=== PATIENT | female | born 1995 | race African-American/Black ===

== ENCOUNTER 2019-11-29 12:30 | Outpatient (CLI) | payer BC, SELFPAY | END 2019-11-29 12:31 | disposition home or self-care (01) | PROVIDERS: PCP Nurse Practitioner Family; Visit Provider Obstetrics & Gynecology | DX: O00.90 Unspecified ectopic pregnancy without intrauterine pregnancy (principal); Z3A.00 Weeks of gestation of pregnancy not specified | CPT/HCPCS: 36415; 84702; 86900; 86901 ==

== ENCOUNTER 2019-11-30 09:08 | Outpatient (CLI) | payer BC, SELFPAY ==
--- NOTE | ~2019-11-30 | US_ITS ---
EXAMINATION: US OB <=14 wk fetus w TV EXAM DATE: 11/30/2019 10:06 INDICATION: Ectopic . 1st trimester. TECHNIQUE: Pelvic obstetrical transabdominal and transvaginal sonogram was performed by a technian steiner. There are multiple grayscale and Doppler images available for interpretation. There are no gabriel ier studies of this gestation for comparison. FINDINGS: Uterus is retroverted, measures 8.8 x 5.8 x 5.0 cm. There is intrauterine gestation sac. pole with heart rate confirmed at 93 beats per minute. The 3 mm crown-rump length corresponds to estimated gestational age by ultrasound of 6 weeks 0 days, BONIFACIO by ultrasound 07/25/2020. Yolk sac is identified. There is hypoechoic subchorionic region which could be a small subchorionic hemorrha ge measuring 1.0 x 0.9 x 1.6 cm. The ovaries are morphologically normal, no extrauterine i dentified. IMPRESSION: 1. Early live intrauterine gestation, probable small subchorionic hemorrhage. 2. No extrauterine identified. Reviewed, dictated and finalized at location [facility].
== END 2019-11-30 09:09 | disposition home or self-care (01) ==
PROVIDERS: PCP Nurse Practitioner Family; Visit Provider Obstetrics & Gynecology
DX: O00.90 Unspecified ectopic pregnancy without intrauterine pregnancy (principal); Z3A.00 Weeks of gestation of pregnancy not specified
CPT/HCPCS: 76801; 76817

== ENCOUNTER 2020-01-03 10:27 | Outpatient (CLI) | payer BC, SELFPAY ==
[2020-01-03 11:06] LABS: Hematocrit 35.8 % (37.0-47.0); Hemoglobin 12.5 g/dL (12.0-15.0); Mean Corpuscular HGB Conc 34.9 g/dl (32-36); Mean Corpuscular Hemoglobin 31.4 pg (26-34); Mean Corpuscular Volume 89.9 fl (80-100); Mean Platelet Volume 9.3 fl (7.4-10.4); Platelet Count Result 313 k/mm3 (150-375); Red Blood Count 3.98 M/mm3 (4.2-5.4); Red Cell Distribution Width 12.6 % (11.5-14.5); White Blood Count 12.9 K/mm3 (4.5-10.0)
[2020-01-03 12:06] LABS: HIV 1/2 Ab P24 Ag Result Negative (Negative)
[2020-01-03 12:34] LABS: Hepatitis B Surface Antigen Negative (Negative); Rubella IgG Antibody 27.4 IU/ML
[2020-01-03 12:42] LABS: Hepatitis C Virus Antibody Negative (Negative)
[2020-01-04 09:31] LABS: Rapid Plasma Reagin Non-Reactive (NonReactive)
[2020-01-07 12:49] LABS: CMV IgG Antibody <0.60 U/mL (<0.60)
== END 2020-01-03 10:28 | disposition home or self-care (01) ==
PROVIDERS: PCP Nurse Practitioner Family; Visit Provider Obstetrics & Gynecology
DX: N92.5 Other specified irregular menstruation (principal)
CPT/HCPCS: 36415; 84702; 85027; 85461; 85660; 86592; 86644; 86703; 86747; 86762; 86787; 86803; 87086; 87088; 87340; G0432

== ENCOUNTER 2020-01-24 13:05 | Outpatient (CLI) | payer BC, SELFPAY ==
--- NOTE | ~2020-01-24 | US_ITS ---
US breast LT limited DATE: 01/24/2020 13:38 INDICATION: Left breast mass TECHNIQUE: High-resolution ultrasound imaging targeted to left breast lump COMPARISON: None FINDINGS: At 1:00 5 cm from the nipple there is a parallel circumscribed hypoechoic mass measuring 6. 7 x 15.1 x 14.1 mm mass with through transmission posterior enhancement. The features are benign and most likely secondary to fibroadenoma. IMPRESSION: BI-RADS 2: Benign finding. Probable benign 6.7 x 15.1 x 14.1 mm fibroadenoma at 1:00 5 cm from nipple Reviewed, dictated and finalized at [facility]. Reviewed, dictated and finalized at location A. IMPRESSION: BI-RADS 2: Benign finding. Probable benign 6.7 x 15.1 x 14.1 mm fib roadenoma at 1:00 5 cm from nipple
== END 2020-01-24 13:06 | disposition home or self-care (01) ==
PROVIDERS: PCP Nurse Practitioner Family; Visit Provider Obstetrics & Gynecology
DX: N63.20 Unspecified lump in the left breast, unspecified quadrant (principal)
CPT/HCPCS: 76642